=== PATIENT | male | born 1985 | race African-American/Black ===

== ENCOUNTER 2024-05-04 22:22 | Emergency (ER) | payer OTHER, SELFPAY ==
[2024-05-04 22:27] VITALS: BP 119/84; BP 143/91; PULSE 78; PULSE 85; RESP 20; TEMP 36.7; O2SAT 98; BMI 32.8
[2024-05-04 22:40] VITALS: BP 119/84; PULSE 75; RESP 18; TEMP 36.7; O2SAT 99
[2024-05-04] MEDS: Acetaminophen 325 MG TABLET 975 MG PO (22:55)
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
[2024-05-04 23:54] VITALS: BP 119/84; PULSE 75; RESP 18; TEMP 36.7; O2SAT 99
== END 2024-05-05 00:09 | disposition home or self-care (01) ==
PROVIDERS: Emergency Provider Emergency Medicine
DX: S06.0X0A Concussion without loss of consciousness, initial encounter (principal); V43.52XA Car driver injured in collision with other type car in traffic accident, initial encounter; Y93.9 Activity, unspecified; Y92.410 Unspecified street and highway as the place of occurrence of the external cause; Y99.9 Unspecified external cause status
CPT/HCPCS: 99283; 99284